=== PATIENT | female | born 2000 | race African-American/Black ===

== ENCOUNTER 2021-03-04 17:57 | Emergency (ER) | payer MEDICAID ==
[~2021-03-04] VITALS: Ht 165.1 cm; Wt 61.0 kg
[2021-03-04 18:03] VITALS: BP 119/75
[2021-03-04] MEDS ORDERED: TETANUS, DIPHTHERIA, PERTUSSIS VAC/PF 0.5ML (>7YR OLD) IM ONE (19:15)
[2021-03-04] MEDS ORDERED: LIDOCAINE HCL/PF 1% 10 MG/ML 5ML VIAL INFIL ONE (19:15)
[2021-03-04] MEDS ORDERED: ACETAMINOPHEN 325MG TABLET PO ONE (19:15)
[2021-03-04] MEDS ORDERED: BACITRACIN ZINC OINT UDPKT TOP ONE (19:15)
[2021-03-04] MEDS ORDERED: IBUP-2028 MT (20:23)
[2021-03-04] MEDS ORDERED: CEPH500C2 MT (20:25)
== END 2021-03-04 20:48 | disposition home or self-care (01) ==
LOC: ER 17:57
DX: S01.511A Laceration without foreign body of lip, initial encounter (principal); W50.0XXA Accidental hit or strike by another person, initial encounter; Y93.89 Activity, other specified; Y92.89 Other specified places as the place of occurrence of the external cause; G40.909 Epilepsy, unspecified, not intractable, without status epilepticus
CPT/HCPCS: 12013; 99283; J3490

== ENCOUNTER 2024-11-24 04:40 | Emergency (ER) | payer MEDICAID, OTHER ==
[~2024-11-24] VITALS: Ht 165.1 cm; Wt 61.0 kg
[~2024-11-24 04:40] MED LIST: CEPH500C2 MT; IBUP-2028 MT
[2024-11-24 04:44] VITALS: O2SAT 100
[2024-11-24 05:21] VITALS: BP 126/90; PULSE 97; RESP 13; TEMP 36.8; O2SAT 100
== END 2024-11-24 07:10 | disposition home or self-care (01) ==
LOC: ER 04:40
DX: R07.89 Other chest pain (principal); F32.A Depression, unspecified; F41.9 Anxiety disorder, unspecified; Z98.890 Other specified postprocedural states
CPT/HCPCS: 71045; 93005; 99283

== ENCOUNTER 2024-11-24 07:58 | Emergency (ER) | payer OTHER ==
[~2024-11-24] VITALS: Ht 165.1 cm; Wt 72.6 kg
[2024-11-24 08:01] VITALS: O2SAT 100
[2024-11-24 08:23] VITALS: TEMP 37.1
[2024-11-24 08:23] LABS: BASOPHILS % 0.4 % (0.0-2.0); EOSINOPHILS % 1.3 % (0.0-5.0); HEMOGLOBIN. 13.8 g/dL (12.0-16.0); LYMPHOCYTES % 20.9 % (20.0-50.0); MEAN CORPUSCULAR HEMOGLOBIN 29.1 pg (28.0-32.0); MEAN CORPUSCULAR VOLUME 88.2 fL (81.0-99.0); MEAN PLATELET VOLUME 6.5 fl (7.4-10.4); MONOCYTES % 5.3 % (2.0-8.0); NEUTROPHILS % 72.1 % (40.0-76.0); PLATELET 341 x1000/uL (130-400); RED BLOOD CELL COUNT 4.76 mill/uL (4.2-5.4); RED CELL DISTRIBUTION WIDTH 13.9 % (11.6-14.6); WHITE BLOOD COUNT 10.6 x1000/uL (4.5-11.0)
[2024-11-24 08:39] LABS: CHLORIDE 108 mEq/L (98-107); POTASSIUM 3.8 mEq/L (3.5-5.1); SODIUM 138 mEq/L (136-145)
[2024-11-24 08:40] LABS: CARBON DIOXIDE 26 mEq/L (21-32)
[2024-11-24 08:41] LABS: CALCIUM 9.4 mg/dL (8.7-10.4)
[2024-11-24] MEDS: KETOROLAC 30MG/ML VIAL IM STA (08:41)
[2024-11-24 08:45] LABS: CREATININE 0.8 mg/dL (0.6-1.0); GLUCOSE 104 mg/dL (70-105)
[2024-11-24] MEDS ORDERED: HYDROXYZINE 25MG TABLET PO ONE (08:45)
[2024-11-24 08:46] LABS: UREA NITROGEN BLOOD 9 mg/dL (9-23)
[2024-11-24 08:48] LABS: TROPONIN I HIGH SENSITIVITY 4 ng/L (3.0-34)
[2024-11-24] MEDS: HYDROXYZINE 10MG TABLET PO NR (09:15)
[2024-11-24 09:17] VITALS: BP 129/78; PULSE 92; RESP 16; O2SAT 100
[2024-11-24 09:31] LABS: CLARITY URINE CLEAR (CLEAR); COLOR URINE YELLOW (YELLOW); GLUCOSE URINE NEGATIVE (NEGATIVE); KETONES URINE NEGATIVE (NEGATIVE); LEUKOCYTE ESTERASE URINE NEGATIVE (NEGATIVE); NITRITE URINE NEGATIVE (NEGATIVE); OCCULT BLOOD URINE NEGATIVE (NEGATIVE); PROTEIN URINE NEGATIVE (NEGATIVE); SPECIFIC GRAVITY URINE 1.012 (1.005-1.030)
== END 2024-11-24 09:20 | disposition home or self-care (01) ==
LOC: ER 07:58
DX: R07.89 Other chest pain (principal); F41.9 Anxiety disorder, unspecified; F32.A Depression, unspecified; Z98.890 Other specified postprocedural states
CPT/HCPCS: 99284; 80048; 81003; 85025; 84484; 36415; 93005; 96372; J1885